=== PATIENT | female | born 1980 | race Caucasian/White ===

== ENCOUNTER 2024-12-20 10:40 | Emergency (ER) | payer OTHER, SELFPAY ==
--- NOTE | ~2024-12-20 | CT_ITS ---
CT brain wo con Ordering provider: Malcolm Henson MD History: 44 years Female with . left sided headache with blurred vision . Comparison: June 16, 2016 Technique: CT of the head without contrast. Radiation reduction technique utilized.The dose-length pr oduct was 605.33 mGy-cm. FINDINGS: BRAIN PARENCHYMA AND CSF SPACES: No midline shift, mass effect or hemorrhage. The brain parenchyma a nd CSF spaces are otherwise normal. VISUALIZED PARANASAL SINUSES: Right maxillary sinus disease. Otherwise, Well aerated. MASTOIDS: Well aerated. BONES: The bones appear intact. SOFT TISSUES: Visualized nasopharynx is normal. Superficial soft tissues are normal. IMPRESSION: No acute intracranial findings. Reviewed, dictated and finalized at location A.
--- OUTSIDE RECORDS SUMMARY | 2024-12-20 10:43 | XMS_ITS | Patient Health Record ---
Author Organization 1 OF Aleks isidro [facility] Address [address] [facility] [address] [place] [address] Care Team Providers Care Building Economist Name Role Phone Rubén FLORES, Dr. Blackman Primary Care Provider U Juliette Sheikh Unavailable [phone] Reason For Referral No Information Problems Problem Type SNOMED Code ICD Code Onset Dates Problem Status W/U Status Risk Notes Problem [id number] Type 2 diabetes mellitus without complication, without long-term current use of insulin (E11.9) Active confirmed Problem [id number] Skin ulcer of toe of left foot with fat layer exposed (L97.522) Active confirmed Plan Of Treatment No Information Insurance Providers Payer Name Payer Address Payer Phone Subscriber Number Group Number Insured Name Patient Relationship to Insured Coverage Start Date Coverage End Date [facility] [address] [place], [place] [id number] Alisia Huber Self - patient is the insured
--- OUTSIDE RECORDS SUMMARY | 2024-12-20 10:43 | XMS_ITS | Clinical Summary ---
Author Organization [facility] Address [address] [place] [address] Care Team Providers Care Game Advisor Name Role Phone Hiral Montana MD Primary Care Pro vider Allergies Active Allergy Reactions Criticality Noted Date Comments Azithromycin Rash Medium 09/14/2013 Coconut Unknown 05/16/2021 Iodinated Contrast Media Hives Medium 05/16/2022 Iodine Unknown 09/26/2012 Medications iron aspgly,ps-C-B12 -FA-Ca-suc 150-60-25-1 cj-vu-kec-mg capsule Take 1 capsule by mouth daily Iron supplement Active atorvastatin (LIPITOR) 20 mg tabletIndicatio ns:Type 2 diabetes mellitus without complication, without long-term current use of insulin (HCC),Hyperlipi demia associated with type 2 diabetes mellitus (HCC) Take 1 tablet (20 mg total) by mouth daily 90 tablet 3 2 Active metFORMIN XR (GLUCOPHAGE XR) 500 mg 24 hr tabletIndicatio ns:Type 2 diabetes mellitus without complication, without long-term current use of insulin (HCC) TAKE 2 TABLETS (1,000 MG TOTAL) BY MOUTH 2 (TWO) TIMES A DAY BEFORE BREAKFAST AND DINNER 360 tablet 1 3 Active tirzepatide (Mounjaro) 10 mg/0.5 mL pen injectorIndicat ions:Type 2 diabetes mellitus with hyperglycemia, without long-term current use of insulin (HCC) Inject 10 mg under the skin every 7 days 2 mL 3 Active tirzepatide (Mounjaro) 12.5 mg/0.5 mL pen injectorIndicat ions:Type 2 diabetes mellitus with hyperglycemia, without long-term current use of insulin (HCC) Inject 12.5 mg under the skin every 7 days 2 mL 4 Active tirzepatide (Mounjaro) 15 mg/0.5 mL pen injectorIndicat ions:Type 2 diabetes mellitus with hyperglycemia, without long-term current use of insulin (HCC) Inject 15 mg under the skin every 7 days 2 mL 4 Active empagliflozin (Jardiance) 25 mg tabletIndicatio ns:Type 2 diabetes mellitus with hyperglycemia, without long-term current use of insulin ([facility]) TAKE 1 TABLET BY MOUTH EVERY DAY 90 tablet 4 Active Active Problems Problem Noted Date Diagnosed Date Cellulitis of great toe of left foot 04/23/2023 Assessment & Plan (04/30/2023 10:19 AM CDT): Reviewed hospital discharge Upcoming appointment with wound clinic Class 2 severe obesity due t o excess calories with serious comorbidity and body mass index (BMI) of 38.0 to 38.9 in adult 04/23/2023 Diabetic ulcer of toe of lef t foot associated with type 2 diabetes mellitus, with fat layer exposed 04/20/2023 Pain of toe of right foot 04/17/2023 Assessment & Plan (04/17/2023 11:24 AM CDT): VSS, no acute distress no systemic signs of toxicity Left great toe with lateral aspect erythema, generalized edema, decreased range of motion, underlying plantar surface acute on chronic worsening of callus/ulcer Diabetic We will cover with broad-spectrum antibiotic with oral doxycycline 100 mg twice a day for 10 days and oral ciprofloxacin 500 mg twice a day for 10 days. Ddx including gout, pseudogout, rheumatoid arthritis. Patient will need further workup for this. 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 Mixed hyperlipidemia 08/13/2012 Diabetes mellitus 08/05/2012 Assessment & Plan (09/13/2023 3:10 PM KILN BURNER HELPER): Lab Results Component Value Date HGBA1C 7.8 09/13/2023 improved, but above goal Switch trulicity to mounjaro Continue metformin 1000mg twice a day and jardiance 25mg daily Assessment & Plan (04/30/2023 10:22 AM CDT): Lab Results Component Value Date HGBA1C 8.5 (H) 04/21/2023 Improved, but above goal Increase jardiance to 25mg, continue 4.5mg trulicity and 1000mg metformin twice a day Assessment & Plan (11/19/2022 8:01 AM KILN BURNER HELPER): Lab Results Component Value Date HGBA1C 10.3 11/19/2022 Uncontrolled Continue metformin 1000mg twice a day & 4.5mg trulicity Add jardiance Assessment & Plan (07/10/2022 2:09 PM CDT): Increase trulicity to 4.5mg Continue metformin Resolved Problems Problem Noted Date Diagnosed Date Resolved Date Systemic inflammatory response syndrome 04/23/2023 04/30/2023 Hyponatremia 04/23/2023 04/30/2023 Leukocytosis 04/23/2023 04/30/2023 Sepsis without acute organ dysfunction 04/21/2023 04/30/2023 Acute cystitis without hematuria 04/21/2023 04/30/2023 Type 2 diabetes mellitus with hyperglycemia 05/16/2022 06/28/2022 Assessment & Plan (05/20/2022 12:16 PM CDT): Lab Results Component Value Date HGBA1C 9.1 (H) 05/19/2022 Uncontrolled Increase trulicity to 3mg Continue metformin Hypertension, benign 04/03/2018 022 Type 2 diabetes mellitus wit hout complication, without long-term current use of insulin 06/28/2022 Assessment & Plan (07/13/2021 10:35 AM CDT): Lab Results Component Value Date HGBA1C 8.7 06/13/2021 Improved from 11.5>8.7>7.4! Continue metformin XR Continue trulicity 1.5mg weekly Assessment & Plan (06/13/2021 10:02 AM CDT): Lab Results Component Value Date HGBA1C 8.7 06/13/2021 Improved from 11.5! Switch metformin to XR as having diarrhea with regular Increase trulicity to 1.5mg weekly for persistently elevated fasting blood sugar Assessment & Plan (05/16/2021 9:46 AM CDT): Uncontrolled Restart metformin Try trulicity, recommend start a few days after metformin Immunizations Immunization Administration Dates Next Due DTP 04/23/1985, 2,1980,07/13,1980 Influenza, Quadrivalent, Hedy l Culture-based MDCK, Preservative Free, Antibiotic Free, Intramuscular 07/06/2022 Influenza, Quadrivalent, Spl it, Preservative Free, Intramuscular 09/13/2023,05/26/2021 Influenza, Trivalent, Cell Culture-based MDCK, Preservative Free, Antibiotic Free, Intramuscular 07/06/2022 Influenza, Unspecified 05/18/2021 MMR 03/11/1990,09/06/1981 OPV 04/23/1985, 2,1980,07/13,1980 OPV, Unspecified 04/23/1985, 2,1980,07/13,1980 Pneumococcal Polysaccharide PPV23 05/16/2022 Tdap 05/16/2022 Surgical History Surgery Date Site/Laterality Comments TUBAL LIGATION Medical History Medical History Date Comments Anemia Diabetes mellitus (HCC) Abnormal Pap smear of cervix History of transfusion Ectopic Family History Medical History Relation Name Comments Atrial fibrillation Father Alvarado Cardiomyopathy Father Alvarado Hypertension Father Alvarado Stroke Father Alvarado Breast cancer Maternal Grandmother Allergy (severe) Mother Ruby Anemia Mother Ruby Diabetes Mother Ruby Myasthenia gravis Mother Ruby Neuropathy Mother Ruby Diabetes Other Heart disease Other Hypertension Other Stroke Other Ovarian cancer Sister Uterine cancer Neg Hx Relation Name Status Comments Father Alvarado Maternal Grandmother Mother Ruby Alive Other Sister Social History Tobacco Use Types Packs/Day Years Used Date Smoking Tobacco: Never Smokeless Tobacco: Never Tobacco Cessation:Counseling Given: Not Answered Social Connection and Isolat ion Panel [NHANES] Answer Date Recorded In a typical week, how many times do you talk on the phone with family, friends, or neighbors? More than three times a week 04/22/2023 How often do you get togethe r with friends or relatives? More than three times a week 04/22/2023 How often do you attend chur ch or yarsani services? More than 4 times per year 04/22/2023 Do you belong to any clubs o r organizations such as sikh groups, unions, fraternal or athletic groups, or school groups? Yes 04/22/2023 How often do you attend meet ings of the clubs or organizations you belong to? More than 4 times per year 04/22/2023 Are you , , di vorced, , never , or living with a partner? 04/22/2023 AUDIT-C Answer Date Recorded Frequency of Alcohol Consumption Not on file 05/16/2022 Q2: How many drinks containi ng alcohol do you have on a typical day when you are drinking? Patient does not drink Frequency of Binge Drinking Not on file 04/18 Overall Financial Resource Strain (CARDIA) Answe r Date Recorded How hard is it for you to pa y for the very basics like food, housing, medical care, and heating? Not hard at all 04/22/2023 PHQ-2 Answer Date Recorded PHQ-2 Total Score (If total score is 3 or more points, staff should administer the PHQ-9) 0 04/30/2023 PRAPARE - Transportation Answer Date Re corded In the past 12 months, has l ack of transportation kept you from medical appointments or from getting medications? No 0803/2023 In the past 12 months, has l ack of transportation kept you from meetings, work, or from getting things needed for daily living? No 04/22/2023 Personal Safety Answer Date Recorded Getting School Help Needed Not on file 04/29 Comments No Sex and Gender Information Value Date Recorded Sex Assigned at Not on file Legal Sex Female 6:21 PM KILN BURNER HELPER Gender Identity Not on file Sexual Orientation Not on file Obstetrics History Para Term AB IAB SAB Ectopic Multiple Livin g Live Births 6 1 1 5 4 1 1 1 Date Outcome GA Total Labor Labor/2nd/3rd Weight Sex Type Anes PTL Raina A1 A5 Name Clin Ectopic SAB SAB SAB SAB 2009 Term Vag-S pont Living Last Filed Vital Signs Vital Sign Reading Time Taken Comments Blood Pressure 130/88 09/13/2023 2:55 PM KILN BURNER HELPER Pulse 72 09/13/2023 2:55 PM KILN BURNER HELPER Temperature 36.3 C (97.3 F) 09/13/2023 2:55 PM KILN BURNER HELPER Respiratory Rate 18 09/13/2023 2:55 PM KILN BURNER HELPER Oxygen Saturation 99% 09/13/2023 2:55 PM KILN BURNER HELPER Inhaled Oxygen Concentration - - Weight 117.7 kg (259 lb 6.4 oz) 09/13/2023 2:55 PM KILN BURNER HELPER Height 175.3 cm (5' 9 ) 09/13/2023 2:55 PM KILN BURNER HELPER Body Mass Index 38.31 09/13/2023 2:55 PM KILN BURNER HELPER Plan of Treatment Health Maintenance Due Date Last Done Comments Hepatitis C Screening 1980 Foot Exam 1980 Varicella Vaccines (1 of 2 - 13+ 2-dose series) 02/25/1993 Hepatitis B Screening 02/25/1998 Cervical Cancer Screening 05/16/2023 05/16/2022 Pneumococcal vaccine <65 (2 of 2 - PCV) 05/16/2023 05/16/2022 Regular Well Visit/Exam 18-64 05/16/2023 05/16/2022 Albumin Creatinine Ratio, Urine 05/19/2023 05/19/2022 Lipid Panel 05/19/2023 05/19/2022, 08/3 09/2020, 09/14/2013 Breast Cancer Screening-Mammogram 09/13/2023 09/13/2022 Hemoglobin A1C 03/14/2024 09/13/2023, 08/0 02/2023, 11/19/2022, Additional history exists eGFR 04/23/2024 04/23/2023, 08/0 02/2023, 04/20/2023, Additional history exists Depression Screening 04/30/2024 04/30/2023, 05/16/2022, 06/13/2021 Covid-19 Vaccine ( season) 2024 07/06/2022, 11/27/2020 Dilated Eye Exam 09/13/2025 09/13/2023 DTaP/Tdap/Td Vaccine (7 - Td or Tdap) 05/16/2032 05/16/2022, 04/23/1985, 11/03/1981, Additional history exists Influenza Vaccine Completed 07/04/2024, , 07/06/2022, Additional history exists HPV Vaccines Aged Out No longer eligi ble based on patient's age to complete this topic Procedures Procedure Name Priority Date/Time Associated Diagnosis Comments POCT HEMOGLOBIN A1C Routine 09/13/2023 3:00 PM KILN BURNER HELPER Type 2 diabetes mellitus with hyperglycemia, without long-term current use of insulin (HCC) RETINAVUE SCANNER - OU - BOTH EYES Routine 09/13/2023 Type 2 diabetes mellitus with hyperglycemia, without long-term current use of insulin (HCC) EGFR Routine 04/23/2023 5:30 AM CDT DIAGNOSTIC MAMMOGRAM BILATERAL W JORGE Schedule Routine, Read Routine (OP Routine) 09/13/2022 1:45 PM KILN BURNER HELPER Persistent nodularity of breast ALBUMIN CREATININE RATIO, URINE Routine 05/19/2022 8:08 AM CDT Type 2 diabetes mellitus with hyperglycemia, without long-term current use of insulin (HCC) LIPID PANEL Routine 05/19/2022 8:07 AM CDT Type 2 diabetes mellitus with hyperglycemia, without long-term current use of insulin (HCC) PAP AND HIGH RISK HPV, REFLEX TO GENOTYPING Routine 05/16/2022 9:58 AM CDT Encounter for well woman exam with routine gynecological exam from Last 3 Months or Most Recently Relevant to Health Maintenance Results * POCT hemoglobin A1c (09/13/2023 3:00 PM KILN BURNER HELPER) Hemoglobin A1C, POC 7.8 % Blood 09/13/2023 3:00 PM KILN BURNER HELPER Hiral Montana MD POINT OF CARE WOLFGANG T ORDERABLES Final Result * RetinaVue Scanner - OU - Both Eyes (09/13/2023) Anatomical Region Laterality Modality Head Fundus Photograp hy Hiral Montana MD OPHTH PHOTOGRAPHY Final Result * eGFR (04/23/2023 5:30 AM CDT) eGFR 114 mL/min/1. 73 m2 [facility] Comment: Interpretive Data Reference Interval Normal >/= 90 mL/min/1.73m2 Mildly decreased* 60 - 89 mL/min/1.73m2 Mildly to moderately decreased 45 - 59 mL/min/1.73m2 Moderately to severely decreased 30 - 44 mL/min/1.73m2 Severely decreased 15 - 29 mL/min/1.73m2 Kidney Failure < 15 mL/min/1.73m2 *Relative to young adult level Estimated glomerular filtration rate is determined by the 2020 CKD-EPI equation recommended by the National Kidney Foundation (A Unifying Approach to GFR Estimation: Recommendations of the NKF-ASK Task Force on Reassessing the Inclusion of Race in Diagnosing Kidney Disease, JASN 2020). The CKD-EPI equation should not be used for patients with unstable renal function and has not been validated in children and those over 70. Current interpretive data was last reviewed 2021. Blood 04/23/2023 5:30 AM CDT 04/23/2023 6:20 AM CDT Amelia Pace DO LAB BLOOD ORDERABLES Final Resul t [facility] [address] [facility] Department [place] [address] * Diagnostic Mammogram Bilateral W Jorge (09/13/2022 1:45 PM KILN BURNER HELPER) Anatomical Region Laterality Modality Breast Bilateral Mammography 09/13/2022 2:04 PM KILN BURNER HELPER Impressions 09/13/2022 2:06 PM KILN BURNER HELPER 1. No suspicious finding by mammogram or ultrasound at the left breast palpable area of concern at 2:30-3 o'clock, 8-9 cm from the nipple. Clinical follow-up is recommended. Any further evaluation regarding this palpable area should be based on clinical grounds. 2. No mammographic or sonographic evidence of malignancy. Screening mammogram in 1 year is recommended. BIRADS 1 - Negative COMMENT: I discussed these findings and impression with the patient at the time of the examination. THIS IS AN ELECTRONICALLY VERIFIED FINAL REPORT 09/13/2022 2:06 PM - Electronically signed by Juan Campos M.D. MD: Report ID: [id number] Reading Location: [facility] 09/13/2022 2:06 PM KILN BURNER HELPER EXAM DESCRIPTION: US BREAST LEFT LIMITED; DIAGNOSTIC MAMMOGRAM BILATERAL W JORGE REASON FOR STUDY: 42-year-old female presents for evaluation of a palpable left breast lump and right screening mammogram. COMPARISON: None available, baseline mammogram TECHNIQUE: CC and MLO views of the bilateral breasts were obtained with digital technique using breast tomosynthesis with C view. Multiple grayscale ultrasound images of the left breast were obtained. FINDINGS: DENSITY: There are scattered areas of fibroglandular density. MAMMOGRAM FINDINGS: A radiopaque marker has been placed on the lateral left breast, denoting the palpable area of concern. There is no abnormality underlying the radiopaque marker. No suspicious masses, suspicious calcifications, or other suspicious findings are seen in either breast. ULTRASOUND FINDINGS: Targeted ultrasound of the left breast palpable area of concern at 2:30-3 o'clock, 8-9 cm from the nipple demonstrates only normal tissue with no suspicious solid or cystic mass. us Elida Tony MD IMG MAMMO PROCEDURES Final Result * Albumin Creatinine Ratio, Urine (05/19/2022 8:08 AM CDT) Creatinine ur 143.6 Not Estab. mg/dL [facility] - 01 Microalbumin, ur 33.1 Not Estab. ug/mL [facility] - 01 Microalbumin/cre at ratio 23 0 - 29 mg/g creat [facility] - 01 Comment: Normal: 0 - 29 Moderately increased: 30 - 300 Severely increased: >300 Urine 05/19/2022 8:08 AM CDT 05/19/2022 Narrative [facility] - 05/20/2022 8:08 AM CDT Performed at: [address] [place] [id number] Endband Cutter Hand: Marito Curiel PhD, Phone: [phone] Hiral Montana MD LAB URINE ORDERAB LES Final Result Performing Organization Address [facility] de Phone Number [facility] - * (ABNORMAL) Lipid panel (05/19/2022 8:07 AM CDT) Cholesterol 150 100 - 199 mg/dL [facility] - 01 Triglycerides 106 0 - 149 mg/dL [facility] - 01 HDL Cholesterol 36(L) >39 mg/dL [facility] - 01 VLDL 20 5 - 40 mg/dL [facility] - 01 LDL, calculated 94 0 - 99 mg/dL [facility] - 01 Blood 05/19/2022 8:07 AM CDT 05/19/2022 Narrative [facility] - 05/20/2022 8:08 AM CDT Performed at: [address] [id number] Endband Cutter Hand: Marito Curiel PhD, Phone: [phone] Hiral Montana MD LAB BLOOD ORDERAB LES Final Result Performing Organization Address [facility] Co de Phone Number [facility] - * (ABNORMAL) Pap and High Risk HPV, reflex to Genotyping (05/16/2022 9:58 AM CDT) Thin prep (Pap test) 05/16/2022 9:58 AM CDT 05/17/2022 9:58 AM CDT Narrative PATHOLOGY [facility] - 05/23/2022 4:08 PM CDT [facility] Department of Pathology [address] [place] [address] Final Report with Addendum Note to Patients: This report may contain a detailed description of human tissue sent by a health care provider to the laboratory for pathologic evaluation. The content of this report is essential for diagnosis and may provide important critical findings. This information may be unfamiliar to patients to review without a medical professional present. It is advised that the patient review this report in the presence of a health care provider who can answer questions and explain the details. Patient Name: ALISIA COREY Address: [address] [place] [address] Gender: F : 1980 (Age: 42) Service: Laboratory Location: [facility] #: [id number] Patient Type: [employer] SPECIMEN Taken: 05/16/2022 Received: 05/17/2022 Accessioned:: 05/18/2022 Reported: 05/23/2022 Physician(s): Hiral Montana M.D. [facility] Diagnosis: Source of Specimen: SCREENING THIN PREP IMAGED PAP w/ HPV Specimen Adequacy: - Satisfactory for evaluation; endocervical/transformation zone component present General Category: - Epithelial cell abnormality Interpretation/Results: - Low grade squamous intraepithelial lesion (LSIL) encompassing HPV/mild dysplasia/KADEEM I AMARILYS Kim(ASCP)Jose Alberto Gomez M.D. Report Electronically Reviewed and Signed Out By Jose Alberto Gomez M.D. 05/23/2022 16:08:34Addenda: HPV Test Interpretation POSITIVE for one or more of types 16, 18, 31, 33, 35, 39, 45, 51, 52, 56, 58, 59, 66 and 68. These high/intermediate risk HPV types are associated with dysplasia and some cervical cancers. Test performed utilizing Gen-Probe Aptima assay. AMARILYS Kim(ASCP)Report Electronically Reviewed and Signed Out By AMARILYS Kim(ASCP) 05/22/2022 11:00:05 Specimen(s) Received: A: SCREENING THIN PREP IMAGED PAP w/ HPV Clinical History: The Pap test is a screening test used to aid in the detection of cervical cancer and its precursors. It should not be the sole means by which malignant and premalignant lesions are diagnosed. Both false negative and false positive results may occur. It also has poor sensitivity for the detection of endometrial lesions and should not be used to evaluate suspected endometrial abnormalities. For these reasons it is most important to obtain Pap tests at regular intervals. The performance characteristics of some immunohistochemical stains, fluorescence in-situ hybridization tests and immunophenotyping by flow cytometry cited in this report (if any) were determined by the Surgical Pathology Department at [facility] as part of an ongoing software quality tester program and in compliance with federally mandated regulations drawn from the Clinical Laboratory Improvement Act of 1988 (CLIA '88). Some of these tests rely on the use of analyte specific reagents and are subject to specific labeling requirements by the US Food and Drug Administration. Such diagnostic tests may only be performed in a facility that is certified by the Department of Health and Human Services as a high complexity laboratory under CLIA '88. The FDA has determined that such clearance or approval is not necessary. This test is used for clinical purposes. It should not be regarded as investigational or for research. Nevertheless, federal rules concerning the medical use of analyte specific reagents require that the following disclaimer be attached to the report: This test was developed and its performance characteristics determined by the Surgical Pathology Department [facility]. It has not been cleared or approved by the U. S. Food and Drug Administration. Hiral Montana MD LAB CYTOLOGY TRAE NARAYAN Final Result PATHOLOGY [facility] from Last 3 Months or Most Recently Relevant to Health Maintenance Insurance [facility] CHOICE PLUS [facility] CHOICE PLUS [facility] CHOICE PLUS Advance Directives For more information, please contact: [phone] * Full Code (Latest Code Status on File) Date Activated Date Inactivated Comments 04/21/2023 1:35 AM 04/23/2023 9:04 PM * Full Code Date Activated Date Inactivated Comments 04/20/2023 8:26 PM 04/21/2023 1:35 AM Care Teams Game Advisor Relationship Specialty Start Date End Date Hiral Montana MD PCP - General Family Medicine 05/16/21
--- OUTSIDE RECORDS SUMMARY | 2024-12-20 10:43 | XMS_ITS | Referral Summary ---
Author Organization [facility] Address [address] [place] [address] Care Team Providers Care Freight Brakeman Name Role Phone Hiral Montana MD Primary Care Pro vider Allergies Active Allergy Reactions Criticality Noted Date Comments Azithromycin Rash Medium 09/14/2013 Coconut Unknown 05/16/2021 Iodinated Contrast Media Hives Medium 05/16/2022 Iodine Unknown 09/26/2012 Medications iron aspgly,ps-C-B12 -FA-Ca-suc 150-60-25-1 bt-cv-nak-mg capsule Take 1 capsule by mouth daily [...] hyperglycemia, without long-term current use of insulin ([facility]) TAKE 1 TABLET BY MOUTH EVERY DAY [...] 08/05/2012 Assessment & Plan (09/13/2023 3:10 PM MOTORCYCLE MECHANIC): Lab Results Component Value Date HGBA1C 7.8 [...] day Assessment & Plan (11/19/2022 8:01 AM MOTORCYCLE MECHANIC): Lab Results Component Value Date HGBA1C 10.3 [...] 2,1980,07/13,1980 Pneumococcal Polysaccharide PPV23 05/16/2022 Tdap 05/16/2022 Social History Tobacco Use Types Packs/Day Years [...] often do you attend chur ch or religion services? More than 4 times per year 04/22/2023 Do you belong to any clubs o r organizations such as restoration groups, unions, fraternal or athletic groups, or [...] medical appointments or from getting medications? No 03/2023 In the past 12 months, has l ack of transportation kept you from meetings, work, or from getting things needed for daily living? No 04/22/2023 Personal Safety Answer Date Recorded Getting School Help Needed Not on file 04/29 Comments No Sex and Gender Information Value Date Recorded Sex Assigned at Not on file Legal Sex Female 6:21 PM MOTORCYCLE MECHANIC Gender Identity Not on file Sexual Orientation Not on file Last Filed Vital Signs Vital Sign Reading Time Taken Comments Blood Pressure 130/88 09/13/2023 2:55 PM MOTORCYCLE MECHANIC Pulse 72 09/13/2023 2:55 PM MOTORCYCLE MECHANIC Temperature 36.3 C (97.3 F) 09/13/2023 2:55 PM MOTORCYCLE MECHANIC Respiratory Rate 18 09/13/2023 2:55 PM MOTORCYCLE MECHANIC Oxygen Saturation 99% 09/13/2023 2:55 PM MOTORCYCLE MECHANIC Inhaled Oxygen Concentration - - Weight 117.7 kg (259 lb 6.4 oz) 09/13/2023 2:55 PM MOTORCYCLE MECHANIC Height 175.3 cm (5' 9 ) 09/13/2023 2:55 PM MOTORCYCLE MECHANIC Body Mass Index 38.31 09/13/2023 2:55 PM MOTORCYCLE MECHANIC Plan of Treatment Not on file Procedures Procedure Name Priority Date/Time Associated Diagnosis Comments POCT HEMOGLOBIN A1C Routine 09/13/2023 3:00 PM MOTORCYCLE MECHANIC Type 2 diabetes mellitus with hyperglycemia, without long-term current use of insulin (HCC) RETINAVUE SCANNER - OU - BOTH EYES Routine 09/13/2023 Type 2 diabetes mellitus with hyperglycemia, without long-term current use of insulin (HCC) EGFR Routine 04/23/2023 5:30 AM CDT DIAGNOSTIC MAMMOGRAM BILATERAL W JORGE Schedule Routine, Read Routine (OP Routine) 09/13/2022 1:45 PM MOTORCYCLE MECHANIC Persistent nodularity of breast ALBUMIN CREATININE RATIO, [...] * POCT hemoglobin A1c (09/13/2023 3:00 PM MOTORCYCLE MECHANIC) Hemoglobin A1C, POC 7.8 % Blood 09/13/2023 3:00 PM MOTORCYCLE MECHANIC Hiral Montana MD POINT OF CARE OWLFGANG T ORDERABLES Final Result * RetinaVue Scanner [...] BLOOD ORDERABLES Final Resul t [place] [facility] [address] [facility] Department [place] [address] * Diagnostic Mammogram Bilateral W Jorge (09/13/2022 1:45 PM MOTORCYCLE MECHANIC) Anatomical Region Laterality Modality Breast Bilateral Mammography 09/13/2022 2:04 PM MOTORCYCLE MECHANIC Impressions 09/13/2022 2:06 PM MOTORCYCLE MECHANIC 1. No suspicious finding by mammogram or [...] by Juan Campos M.D. MD: Report ID: [id number] Reading Location: [facility] 09/13/2022 2:06 PM MOTORCYCLE MECHANIC EXAM DESCRIPTION: US BREAST LEFT LIMITED; DIAGNOSTIC [...] - 05/20/2022 8:08 AM CDT Performed at: [address] [place] [id number] Corporate Librarian: Marito Curiel PhD, Phone: [phone] Hiral Montana MD LAB URINE ORDERAB LES Final Result Performing Organization Address City/[facility]/ZIP Co de Phone Number [facility] - * (ABNORMAL) Lipid panel (05/19/2022 8:07 AM CDT) Pathologist [facility] Cholesterol 150 100 - 199 mg/dL [facility] - 01 Triglycerides 106 0 - 149 mg/dL [facility] - 01 HDL Cholesterol 36(L) >39 mg/dL [facility] - 01 VLDL 20 5 - 40 mg/dL [facility] - 01 LDL, calculated 94 0 - 99 mg/dL [facility] - 01 Blood 05/19/2022 8:07 AM CDT 05/19/2022 Narrative [facility] - 05/20/2022 8:08 AM CDT Performed at: [address] [place] [address] [id number] Corporate Librarian: Marito Curiel PhD, Phone: [phone] Hiral Montana MD LAB BLOOD ORDERAB LES Final Result Performing Organization Address City/[facility]/ZIP Co de Phone Number [facility] - 01 * (ABNORMAL) Pap and High Risk HPV, reflex to Genotyping (05/16/2022 9:58 AM CDT) Thin prep (Pap test) 05/16/2022 9:58 AM CDT 05/17/2022 9:58 AM CDT Narrative PATHOLOGY [facility] - 05/23/2022 4:08 PM CDT [facility] Department of Pathology [address] [place] [id number] Final Report with Addendum Note to Patients: [...] the details. Patient Name: ALISIA COREY Address: [address] [place] [address] Gender: F : 1980 (Age: 42) Service: Laboratory Location: [facility] #: [id number] Patient Type: [facility] SPECIMEN Taken: 05/16/2022 Received: 05/17/2022 Accessioned:: 05/18/2022 Reported: 05/23/2022 Physician(s): Hiarl Montana M.D. [facility] Diagnosis: Source of Specimen: SCREENING [...] Kim(ASCP)Report Electronically Reviewed and Signed Out By ANUSHA KimASCP) 05/22/2022 11:00:05 Specimen(s) Received: A: SCREENING THIN [...] determined by the Surgical Pathology Department at [facility] as part of an ongoing quality assurance qa lab analyst program and in compliance with federally mandated [...] characteristics determined by the Surgical Pathology Department [facility]. It has not been cleared or approved by the U. S. Food and Drug Administration. Hiarl Montana MD LAB CYTOLOGY TRAE NARAYAN Final Result PATHOLOGY [facility] from Last 3 Months or Most Recently Relevant to Health Maintenance [place] [place] [address] CHOICE PLUS [facility] Address: [address] [place] [address] [facility] Address: [address] [place] [address] [facility] Address: [address] [place] [address] Advance Directives For more information, please contact: [phone] * Full Code (Latest Code Status on File) Date Activated Date Inactivated Comments 04/21/2023 1:35 AM 04/23/2023 9:04 PM * Full Code Date Activated Date Inactivated Comments 04/20/2023 8:26 PM 04/21/2023 1:35 AM Care Teams Freight Brakeman Relationship Specialty Start Date End Date Hiral Montana MD PCP - General Family Medicine 05/16/21
--- OUTSIDE RECORDS SUMMARY | 2024-12-20 10:43 | XMS_ITS | Clinical Summary ---
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 MACHINE BACK TENDER Gender Identity Not on file Sexual Orientation Not on file Plan of Treatment Health Maintenance Due Date Last Done Comments Hepatitis C Virus (HCV) Screening 1980 TdaP Immunization 1980 Hepatitis B Immunization (1 of 3 - 19+ 3-dose series) 02/25/1999 Pap Smear 02/25/2001 Cervical Cancer Screening (CCS) 02/25/2010 HPV/Cotest 02/25/2010 Discussion re Starting/Frequency of Mammograms 2020 Influenza Immunization (#1) 2024 SARS-COV-2 Immunization ( - season) 2024 Respiratory Syncytial Virus (RSV) Immunization (Adult) (1 - 1-dose 75+ series) 02/25/2055 DTaP/Tdap/Td Immunization Discontinued 1984, 11/03/1981, 1980, Additional history exists Meningococcal Immunization (ACWY) Aged Out No longer eligible based on patient's age to complete this topic Pneumococcal Immunization Combined Aged Out No longer eligible based on patient's age to complete this topic Rotavirus Immunization Aged Out No lo nger eligible based on patient's age to complete this topic
--- OUTSIDE RECORDS SUMMARY | 2024-12-20 10:43 | XMS_ITS | Continuity of Care Document ---
Author Organization [facility] Address [address] [place] [address] [place] [phone] Phone Care Team Providers Care Swedish Masseuse Name Role Phone Fabian Trejo Unavailable Unavailable Procedures Procedure Date THERAPEUTIC EXERCISES NEUROMUSCULAR RE-ED MANUAL THERAPY FUNC ACTIVITY THERAPEUTIC EXERCISES NEUROMUSCULAR RE-ED MANUAL THERAPY FUNC ACTIVITY PT RE-EVALUATION THERAPEUTIC EXERCISES NEUROMUSCULAR RE-ED MANUAL THERAPY FUNC ACTIVITY THERAPEUTIC EXERCISES NEUROMUSCULAR RE-ED MANUAL THERAPY FUNC ACTIVITY ELECTRIC STIMULATION THERAPEUTIC EXERCISES NEUROMUSCULAR RE-ED MANUAL THERAPY FUNC ACTIVITY ULTRASOUND THERAPY HOT/COLD PACK ELECTRIC STIMULATION UNA THERAPEUTIC EXERCISES NEUROMUSCULAR RE-ED FUNC ACTIVITY THERAPEUTIC EXERCISES NEUROMUSCULAR RE-ED MANUAL THERAPY FUNC ACTIVITY ELECTRIC STIMULATION UNA THERAPEUTIC EXERCISES NEUROMUSCULAR RE-ED FUNC ACTIVITY ELECTRIC STIMULATION UNA THERAPEUTIC EXERCISES NEUROMUSCULAR RE-ED MANUAL THERAPY FUNC ACTIVITY ELECTRIC STIMULATION UNA THERAPEUTIC EXERCISES NEUROMUSCULAR RE-ED MANUAL THERAPY FUNC ACTIVITY ELECTRIC STIMULATION UNATT HOT/COLD PACK THERAPEUTIC EXERCISES NEUROMUSCULAR RE-ED MANUAL THERAPY FUNC ACTIVITY HOT/COLD PACK ELECTRIC STIMULATION UNA THERAPEUTIC EXERCISES NEUROMUSCULAR RE-ED MANUAL THERAPY FUNC ACTIVITY ULTRASOUND THERAPY HOT/COLD PACK ELECTRIC STIMULATION UNA THERAPEUTIC EXERCISES NEUROMUSCULAR RE-ED MANUAL THERAPY FUNC ACTIVITY ULTRASOUND THERAPY HOT/COLD PACK ELECTRIC STIMULATION UNA THERAPEUTIC EXERCISES NEUROMUSCULAR RE-ED MANUAL THERAPY FUNC ACTIVITY ULTRASOUND THERAPY HOT/COLD PACK ELECTRIC STIMULATION UNA THERAPEUTIC EXERCISES NEUROMUSCULAR RE-ED MANUAL THERAPY FUNC ACTIVITY ULTRASOUND THERAPY /COLD PACK ELECTRIC STIMULATION UNA THERAPEUTIC EXERCISES NEUROMUSCULAR RE-ED MANUAL THERAPY FUNC ACTIVITY ULTRASOUND THERAPY HOT/COLD PACK ELECTRIC STIMULATION UNA PT EVALUATION THERAPEUTIC EXERCISES ULTRASOUND THERAPY HOT/COLD PACK ELECTRIC STIMULATION UNATT Advance Directives Directive Yes / No Effective Date File Name No Information Encounters Encounter Description Practice Location Reason(s) For Visit Diagnoses Date Provider Providers Copied on Encounter [facility], [address], [place], [place], [id number], tel:[phone] [place] No Information Apr-1 3-201 5 Muehl Fabian. [address] [place] [address], [facility] [address], [place], [facility], . tel: [phone] Referring Provider: [place], [address]. tel:[phone] [facility], [place], [place], [id number], tel:[phone] [place] No Information Apr-0 1-201 5 Muehl Fabian. [address] [place] [address], [facility], [place], [facility], . tel: [phone] Referring Provider: [place], [address]. tel:[phone] [facility], [place], [place], [id number], tel:[phone] [place] No Information Mar-3 0-201 5 Muehl Fabian. [address] [place] [address], [facility] [address], [place], [facility], . tel: [phone] Referring Provider: [place], [address]. tel:[phone] [facility] [address], [place], [place], [id number], tel:[phone] [place] No Information Mar-2 7-201 5 Muehl Fabian. [address] [place] [address], [facility] [address], [place], [facility], . tel: [phone] Referring Provider: [place], [address]. tel:[phone] [facility], [place], [place], [id number], tel:[phone] [place] No Information Mar-2 5-201 5 Muehl Fabian. [address] [place] [address], [address], [place], [facility], . tel: [phone] Referring Provider: [place], [address]. tel:[phone] [place] [address] [facility] [address], [place], [id number], tel:[phone] [place] No Information Mar-2 3-201 5 Muehl Fabian. [address] [place] [address], [address], [place], [facility], [place]. tel: [phone] Referring Provider: [place], [address]. tel:[phone], [id number], [place] tel:[phone] [place] No Information Mar-1 9-201 5 Muehl Fabian. [address] [place] [address], [address], [place], [facility], [place]. tel: [phone] Referring Provider: [place], [address]. tel:[phone] [place] [address], [id number], [place] tel:[phone] [place] No Information Mar-1 6-201 5 Muehl Fabian. [address] [place] [address], [address], [place], [facility], [place]. tel: [phone] Referring Provider: [place], [address]. tel:[phone] [address], [place], [place], [id number], [place] tel:[phone] [place] No Information Mar-1 3-201 5 Muehl Fabian. [address] [place] [address], [address], [place], [facility], . tel: [phone] Referring Provider: [place], [address]. tel:[phone], [id number], tel:[phone] [place] No Information Mar-1 1-201 5 Muehl Fabian. [address] [place] [address], [address], [facility], . tel: [phone] Referring Provider: [place], [address]. tel:[phone], [id number], tel:[phone] [place] No Information Mar-0 6-201 5 Muehl Fabian. [address] [place] [address], [facility] [address], [place], [facility], . tel: [phone] Referring Provider: [place], [address]. tel:[phone], [id number], tel:[phone] [place] No Information Mar-0 4-201 5 Muehl Fabian. [address] [place] [address], [address], [facility], . tel: [phone] Referring Provider: [place], [address]. tel:[phone], [id number], tel:[phone] [place] No Information Mar-0 3-201 5 Muehl Fabian. [address] [place] [address], [address], [facility], . tel: [phone] Referring Provider: [place], [address]. tel:[phone] [address], [id number], [place] tel:[phone] [place] No Information Feb-2 7-201 5 Muehl Fabian. [address] [place] [address], [address] [place] [address], [facility], . tel: [phone] Referring Provider: [place], [address]. tel:[phone] [address], [id number], [place] tel:[phone] [place] No Information Feb-2 5-201 5 David Ladd. [address] [place] [address], [address] [place] [address], [facility], . tel: [phone] Referring Provider: [place], [address]. tel:[phone] [address], [id number], [place] tel:[phone] [place] No Information b-2 3-201 5 Muehl Fabian. [address] [place] [address], [address], [facility], . tel: [phone] Referring Provider: [place], [address]. tel:[phone] [address], [id number], [place] tel:[phone] [place] Pain in joint involving lower leg Feb-2 0-201 5 Muehl Fabian. [address] [place] [address], [address], [place], [facility], . tel: [phone] Referring Provider: [place], [address]. tel:[phone] Family History Family Member Type Diagnosis Age At Onset No Information Payers Payer name Insurance type Covered alliance party ID Authoriza tigraeme(s) [facility] [place] BL [id number] [facility] 2014 Social History Type Description Quantity Date Captured Comments Sex Female Smoking Status No Information Chief Complaint And Reason For Visit No Information Reason For Referral Reason For Referral No Information History Of Present Illness Encounter Date Complaint History Of Prese nt Illness No Information Functional Status Date Functional Assessmen t No Information Instructions Date Instruction Additional Infor mation No Information Assessments Type Assessment Date No Information Patient Care Teams Name Effective Dates (start - stop) Status Members No Information
--- OUTSIDE RECORDS SUMMARY | 2024-12-20 10:43 | XMS_ITS | Clinical Summary ---
Author Organization [facility] Address [address] [place] [address] Care Team Providers Care Size Stamper Name Role Phone Dinorah Aniya Akash CARR Primary Care Provider Allergies Active Allergy Reactions Criticality Noted Date Comments Azithromycin Unknown 09/14/2013 Coconut (Cocos Nucifera) Unknown 08/05/2012 Iodine Unknown 09/26/2012 Medications valACYclovir 1 g tablet Take 1 tablet by mouth 3 (three) times daily. 05/30/2015 Active Accu-Chek Multiclix Lancets [facility] 09/25/2013 Active liraglutide (VICTOZA) 18 MG/3ML injection Inject into the skin daily. 04/03/2018 Active Insulin Syringe-Needle U-100 (BD INSULIN SYRINGE U/F) 31G X 5/16 0.3 ML [facility] 04/03/2018 Active Insulin Pen Needle (B-D ULTRAFINE III SHORT PEN) 31G X 8 MM [facility] 06/14/2015 Active insulin detemir (LEVEMIR FLEXTOUCH) 100 UNIT/ML flextouch PEN 06/13/2015 Activ e lisinopril 10 MG tablet Take 1 tablet by mouth daily. 04/03/2018 Active metFORMIN ER 500 MG 24 hr tablet Take 2 tablets by mouth 2 (two) times daily. 05/03/2014 Active simvastatin 10 MG tablet Take 1 tablet by mouth daily. 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 Right knee pain 10/05/2014 Hyperlipidemia 08/13/2012 Anemia 08/05/2012 Fatigue 08/05/2012 Diabetes mellitus ([facility]) 08/05/2012 Immunizations Name Administration Dates Next Due Dtp 04/23/1985,11/03/1981,1980 ,1980,1980 MMR 03/11/1990,09/06/1981 Opv 04/23/1985,11/03/1981,1980 ,1980,1980 Social History Tobacco Use Types Packs/Day Years Used Date Smoking Tobacco: Never Assessed Comments Unknown Sex and Gender Information Value Date Recorded Sex Assigned at Not on file Legal Sex Female 5:33 PM CDT Gender Identity Not on file Sexual Orientation Not on file Last Filed Vital Signs Vital Sign Reading Time Taken Comments Blood Pressure 148/81 04/03/2018 9:02 AM CDT Pulse 87 04/03/2018 9:02 AM CDT Temperature - - Respiratory Rate - - Oxygen Saturation - - Inhaled Oxygen Concentration - - Weight 127 kg (280 lb) 04/03/2018 9:02 AM CDT Height 177.8 cm (5' 10 ) 04/03/2018 9:02 AM CDT Body Mass Index 40.18 04/03/2018 9:02 AM CDT Plan of Treatment Health Maintenance Due Date Last Done Comments Cervical Cancer Screening Pap Smear (Age 30 to 64) Every 3 Years 1980 Annual Physical 02/25/1983 DTaP, Tdap and Td Vaccines (1 - Tdap) 02/25/1999 04/23/1985, 11/03/1981, 1980, Additional history exists Hepatitis B Vaccines (1 of 3 - 19+ 3-dose series) 02/25/1999 Cervical Cancer Screening Pap with HPV Testing (Age 30 to 64) Every 5 Years 02/25/2010 Cervical Cancer Screening with HPV 02/25/2010 Mammogram Screening 2020 COVID-19 Vaccine ( season) 2024 Hepatitis C Completed 04/26/2018 HPV Vaccines Aged Out No longer eligi ble based on patient's age to complete this topic Meningococcal B Vaccine Aged Out No l onger eligible based on patient's age to complete this topic Meningococcal Vaccine Aged Out No raiza paddy eligible based on patient's age to complete this topic Pneumococcal Vaccine: Pediatrics (0 to 5 Years) and At-Risk Patients (6 to 64 Years) Aged Out No longer eligible based on patient's age to complete this topic RSV Immunizations Under 20 Months Aged Out No longer eligible based on patient's age to complete this topic Procedures Procedure Name Priority Date/Time Associated Diagnosis Comments HEPATITIS C ANTIBODY Routine 04/26/2018 9:11 AM CDT from Last 3 Months or Most Recently Relevant to Health Maintenance Results * HEPATITIS C ANTIBODY (04/26/2018 9:11 AM CDT) HEPATITIS C AB <0.1 0.0 - 0.9 s/co ratio [facility] TO EPIC CONVERSION Comment: Result Comment: Negative: < 0.8 Indeterminate: 0.8 - 0.9 Positive: > 0.9 . The CDC recommends that a positive HCV antibody result be followed up with a HCV Nucleic Acid Amplification test (130490). 04/26/2018 9:11 AM CDT 04/26/2018 9:11 AM CDT Narrative [facility] TO EPIC CONVERSION - 04/30/2018 7:10 PM CDT Result Communication: No patient communication needed at this time us Aniya CARR LABORATORY Final Resul t [facility] TO EPIC CONVERSION from Last 3 Months or Most Recently Relevant to Health Maintenance Care Teams Size Stamper Relationship Specialty Start Date End Date Aniya Copeland APNP [address] [place] [id number] PCP - General NURSE PRACTITIONER 04/26/20
[2024-12-20 11:02] VITALS: BP 156/79; PULSE 83; RESP 16; TEMP 36.4; O2SAT 99
[2024-12-20 11:18] LABS: Glucose Point of Care 251 mg/dl (65-105)
[2024-12-20 11:47] LABS: Basophils Absolute Auto 0.1 K/mm3 (0.0-0.1); Basophils Percent Auto 0.7 % (0.2-1.2); Eosinophils Absolute Auto 0.5 K/mm3 (0-0.3); Eosinophils Percent Auto 5.6 % (0-4.4); Hematocrit 37.6 % (37.0-47.0); Hemoglobin 12.2 g/dL (12.0-15.0); Immature Granulocyte Absolute 0.03 K/mm3 (0.00-0.031); Immature Granulocyte Percent A 0.3 % (0-0.5); Lymphocytes Absolute Auto 2.32 K/mm3 (0.9-3.2); Mean Corpuscular HGB Conc 32.4 g/dl (32-36); Mean Corpuscular Volume 86.2 fl (80-100); Mean Platelet Volume 10.1 fl (7.4-10.4); Monocytes Absolute Auto 0.7 K/mm3 (0.1-0.6); Monocytes Percent Auto 7.6 % (2.6-8.5); Neutrophils Absolute Auto 5.1 K/mm3 (1.3-6.7); Neutrophils Percent Auto 58.8 % (45.5-73.1); Platelet Count Result 324 k/mm3 (150-375); Red Blood Count 4.36 M/mm3 (4.2-5.4); Red Cell Distribution Width 13.8 % (11.5-14.5); White Blood Count 8.6 K/mm3 (4.5-10.0)
--- OUTSIDE RECORDS SUMMARY | 2024-12-20 11:49 | XMS_ITS | Continuity of Care Document ---
Author Organization [facility] Address [address] [place] [address] [place] [address] Phone Care Team Providers Care Job Placement Specialist Name Role Phone Fabian Trejo Unavailable Unavailable [...] Diagnoses Date Provider Providers Copied on Encounter [facility], [address], [place], [place], [id number], tel:[phone] [place] No Information Apr-1 3-201 5 Muehl Fabian. [address] [place] [address], [facility] [address], [place], [facility], . tel: [phone] Referring Provider: [place], [address]. tel:[phone] [facility], [place], [place], [id number], tel:[phone] [place] No Information Apr-0 1-201 5 Muehl Fabian. [address] [place] [address], [facility], [place], [place], [facility], . tel: [phone] Referring Provider: [place], [address]. tel:[phone] [facility], [place], [place], [id number], tel:[phone] [place] No Information Mar-3 0-201 5 Muehl Fabian. [address] [place] [address], [facility] [address], [place], [facility], . tel: [phone] Referring Provider: [place], [address]. tel:[phone] [facility] [address], [place], [place], [id number], tel:[phone] [place] No Information Mar-2 7-201 5 Muehl Fabian. [address] [place] [address], [facility] [address], [place], [facility], . tel: [phone] Referring Provider: [place], [address]. tel:[phone] [facility], [place], [place], [id number], tel:[phone] [place] No Information Mar-2 5-201 5 Muehl Fabian. [address] [place] [address], [address], [place], [place], [facility], . tel: [phone] Referring Provider: [place], [address]. tel:[phone] [place] [address] [facility] [facility] [address], [place], [id number], tel:[phone] [place] No Information Mar-2 3-201 5 Muehl Fabian. [address] [place] [address], [address], [place], [place], [facility], [place]. tel: [phone] Referring Provider: [place], [address]. tel:[phone], [id number], [place] tel:[phone] [place] No Information Mar-1 9-201 5 Muehl Fabian. [address] [place] [address], [address], [place], [facility], [place]. tel: [phone] Referring Provider: [place], [address]. tel:[phone] [place] [address], [id number], [place] tel:[phone] [place] No Information Mar-1 6-201 5 Muehl Fabian. [address] [place] [address], [address], [place], [facility], [place]. tel: [phone] Referring Provider: [place], [address]. tel:[phone] [address], [place], [place], [id number], [place] tel:[phone] [place] No Information Mar-1 3-201 5 Muehl Fabian. [address] [place] [address], [address], [place], [facility], . tel: [phone] Referring Provider: [place], [address]. tel:[phone], [id number], tel:[phone] [place] No Information Mar-1 1-201 5 Muehl Fabian. [address] [place] [address], [address], [place], [facility], . tel: [phone] Referring Provider: [place], [address]. tel:[phone], [id number], tel:[phone] [place] No Information Mar-0 6-201 5 Muehl Fabian. [address] [place] [address], [facility] [address], [place], [facility], . tel: [phone] Referring Provider: [place], [address]. tel:[phone], [id number], tel:[phone] [place] No Information Mar-0 4-201 5 Muehl Fabian. [address] [place] [address], [address], [place], [facility], . tel: [phone] Referring Provider: [place], [address]. tel:[phone], [id number], tel:[phone] [place] No Information Mar-0 3-201 5 Muehl Fabian. [address] [place] [address], [address], [place], [facility], . tel: [phone] Referring Provider: [place], [address]. tel:[phone], [id number], [place] tel:[phone] [place] No Information Feb-2 7-201 5 Muehl Fabian. [address] [place] [address], [address] [place] [address], [facility], . tel: [phone] Referring Provider: [place], [address]. tel:[phone], [id number], [place] tel:[phone] [place] No Information Feb-2 5-201 5 David Ladd. [address] [place] [address], [address] [place] [address], [facility], . tel: [phone] Referring Provider: [place], [address]. tel:[phone], [id number], [place] tel:[phone] [place] No Information b-2 3-201 5 Muehl Fabian. [address] [place] [address], [address], [facility], . tel: [phone] Referring Provider: [place], [address]. tel:[phone] [address], [id number], [place] tel:[phone] [place] Pain in joint involving lower leg Feb-2 0-201 5 Muehl Fabian. [address] [place] [address], [address], [place], [facility], . tel: [phone] Referring Provider: [place], [address]. tel:[phone] Family History Family Member Type Diagnosis Age At Onset No Information Payers Payer name Insurance type Covered libertarian ID Authoriza tigraeme(s) [facility] Emp [place] [id number] [facility] 2014 Social History Type Description Quantity Date [...]
--- OUTSIDE RECORDS SUMMARY | 2024-12-20 11:49 | XMS_ITS | Referral Summary ---
Author Organization [facility] Address [address] [place] [address] Care Team Providers Care Santa'S Helper Name Role Phone Hiral Montana MD Primary Care Pro vider Allergies Active Allergy Reactions Criticality Noted Date Comments Azithromycin Rash Medium 09/14/2013 Coconut Unknown 05/16/2021 Iodinated Contrast Media Hives Medium 05/16/2022 Iodine Unknown 09/26/2012 Medications iron aspgly,ps-C-B12 -FA-Ca-suc 150-60-25-1 ag-mz-olf-mg capsule Take 1 capsule by mouth daily [...] hyperglycemia, without long-term current use of insulin ([facility]) TAKE 1 TABLET BY MOUTH [...] 08/05/2012 Assessment & Plan (09/13/2023 3:10 PM MANAGER CHANNEL): Lab Results Component Value Date HGBA1C 7.8 [...] day Assessment & Plan (11/19/2022 8:01 AM MANAGER CHANNEL): Lab Results Component Value Date HGBA1C 10.3 [...] often do you attend chur ch or yazidism services? More than 4 times per year 04/22/2023 Do you belong to any clubs o r organizations such as uatsdin groups, unions, fraternal or athletic groups, or [...] on file Legal Sex Female 6:21 PM MANAGER CHANNEL Gender Identity Not on file Sexual Orientation Not on file Last Filed Vital Signs Vital Sign Reading Time Taken Comments Blood Pressure 130/88 09/13/2023 2:55 PM MANAGER CHANNEL Pulse 72 09/13/2023 2:55 PM MANAGER CHANNEL Temperature 36.3 C (97.3 F) 09/13/2023 2:55 PM MANAGER CHANNEL Respiratory Rate 18 09/13/2023 2:55 PM MANAGER CHANNEL Oxygen Saturation 99% 09/13/2023 2:55 PM MANAGER CHANNEL Inhaled Oxygen Concentration - - Weight 117.7 kg (259 lb 6.4 oz) 09/13/2023 2:55 PM MANAGER CHANNEL Height 175.3 cm (5' 9 ) 09/13/2023 2:55 PM MANAGER CHANNEL Body Mass Index 38.31 09/13/2023 2:55 PM MANAGER CHANNEL Plan of Treatment Not on file Procedures Procedure Name Priority Date/Time Associated Diagnosis Comments POCT HEMOGLOBIN A1C Routine 09/13/2023 3:00 PM MANAGER CHANNEL Type 2 diabetes mellitus with hyperglycemia, without long-term current use of insulin (HCC) RETINAVUE SCANNER - OU - BOTH EYES Routine 09/13/2023 Type 2 diabetes mellitus with hyperglycemia, without long-term current use of insulin (HCC) EGFR Routine 04/23/2023 5:30 AM CDT DIAGNOSTIC MAMMOGRAM BILATERAL W JORGE Schedule Routine, Read Routine (OP Routine) 09/13/2022 1:45 PM MANAGER CHANNEL Persistent nodularity of breast ALBUMIN CREATININE RATIO, [...] * POCT hemoglobin A1c (09/13/2023 3:00 PM MANAGER CHANNEL) Hemoglobin A1C, POC 7.8 % Blood 09/13/2023 3:00 PM MANAGER CHANNEL Hiral Montana MD POINT OF CARE [place] [...] BLOOD ORDERABLES Final Resul t [facility] [address] [facility] Department [place] [address] * Diagnostic Mammogram Bilateral W Jorge (09/13/2022 1:45 PM MANAGER CHANNEL) Anatomical Region Laterality Modality Breast Bilateral Mammography 09/13/2022 2:04 PM MANAGER CHANNEL Impressions 09/13/2022 2:06 PM MANAGER CHANNEL 1. No suspicious finding by mammogram or [...] by Juan Campos M.D. MD: Report ID: [id number] Reading Location: [facility] 09/13/2022 2:06 PM MANAGER CHANNEL EXAM DESCRIPTION: US BREAST LEFT LIMITED; DIAGNOSTIC [...] - 05/20/2022 8:08 AM CDT Performed at: [address] [place] [id number] Aerographer: Marito Curiel PhD, Phone: [phone] Hiral Montana MD LAB URINE ORDERAB LES Final Result Performing Organization Address City/[facility] [address]/ZIP Co de Phone Number [facility] - * (ABNORMAL) Lipid panel (05/19/2022 8:07 AM CDT) Pathologist [facility] Cholesterol 150 100 - 199 mg/dL [facility] - 01 Triglycerides 106 0 - 149 mg/dL [facility] - 01 HDL Cholesterol 36(L) >39 mg/dL [facility] - 01 VLDL 20 5 - 40 mg/dL [facility] - 01 LDL, calculated 94 0 - 99 mg/dL [facility] - 01 Blood 05/19/2022 8:07 AM CDT 05/19/2022 Narrative [facility] - 05/20/2022 8:08 AM CDT Performed at: [address] [place] [id number] Aerographer: Marito Curiel PhD, Phone: [phone] Hiral Montana MD LAB BLOOD ORDERAB LES Final Result Performing Organization Address City/[facility] [address]/ZIP Co de Phone Number [facility] - 01 * (ABNORMAL) Pap and High Risk HPV, reflex to Genotyping (05/16/2022 9:58 AM CDT) Thin prep (Pap test) 05/16/2022 9:58 AM CDT 05/17/2022 9:58 AM CDT Narrative PATHOLOGY [facility] - 05/23/2022 4:08 PM CDT [facility] Department of Pathology [address] [place] [id number] Final Report with Addendum Note to [...] the details. Patient Name: ALISIA COREY Address: [address] [place] [address] Gender: F : 1980 (Age: 42) Service: Laboratory Location: [facility] #: [id number] Patient Type: [facility] SPECIMEN Taken: 05/16/2022 Received: 05/17/2022 Accessioned:: 05/18/2022 Reported: 05/23/2022 Physician(s): Hiral Montana M.D. [facility] Diagnosis: Source of Specimen: SCREENING THIN PREP [...] determined by the Surgical Pathology Department at [facility] as part of an ongoing quality rn program and in compliance with federally mandated [...] characteristics determined by the Surgical Pathology Department [facility]. It has not been cleared or approved by the U. S. Food and Drug Administration. Hiral Montana MD LAB CYTOLOGY TRAE NARAYAN Final Result PATHOLOGY [facility] from Last 3 Months or Most Recently Relevant to Health Maintenance [place] [address] [place] [address] CHOICE PLUS Advance Directives For more information, please contact: [phone] * Full Code (Latest Code Status on File) Date Activated Date Inactivated Comments 04/21/2023 1:35 AM 04/23/2023 9:04 PM * Full Code Date Activated Date Inactivated Comments 04/20/2023 8:26 PM 04/21/2023 1:35 AM Care Teams Santa'S Helper Relationship Specialty Start Date End Date Hiral Montana MD PCP - General Family Medicine 05/16/21
--- OUTSIDE RECORDS SUMMARY | 2024-12-20 11:49 | XMS_ITS | Clinical Summary ---
Author Organization [facility] Address [address] [place] [address] Care Team Providers Care Family Law Mediator Name Role Phone Hiral Montana MD Primary Care Pro vider Allergies Active Allergy Reactions Criticality Noted Date Comments Azithromycin Rash Medium 09/14/2013 Coconut Unknown 05/16/2021 Iodinated Contrast Media Hives Medium 05/16/2022 Iodine Unknown 09/26/2012 Medications iron aspgly,ps-C-B12 -FA-Ca-suc 150-60-25-1 bu-yu-heo-mg capsule Take 1 capsule by mouth daily [...] hyperglycemia, without long-term current use of insulin ([facility]) TAKE 1 TABLET BY MOUTH EVERY DAY [...] 08/05/2012 Assessment & Plan (09/13/2023 3:10 PM WEB CONSULTANT): Lab Results Component Value Date HGBA1C 7.8 [...] day Assessment & Plan (11/19/2022 8:01 AM WEB CONSULTANT): Lab Results Component Value Date HGBA1C 10.3 [...] often do you attend chur ch or pentecostal services? More than 4 times per year 04/22/2023 Do you belong to any clubs o r organizations such as islam groups, unions, fraternal or athletic groups, or [...] on file Legal Sex Female 6:21 PM WEB CONSULTANT Gender Identity Not on file Sexual Orientation [...] Comments Blood Pressure 130/88 09/13/2023 2:55 PM WEB CONSULTANT Pulse 72 09/13/2023 2:55 PM WEB CONSULTANT Temperature 36.3 C (97.3 F) 09/13/2023 2:55 PM WEB CONSULTANT Respiratory Rate 18 09/13/2023 2:55 PM WEB CONSULTANT Oxygen Saturation 99% 09/13/2023 2:55 PM WEB CONSULTANT Inhaled Oxygen Concentration - - Weight 117.7 kg (259 lb 6.4 oz) 09/13/2023 2:55 PM WEB CONSULTANT Height 175.3 cm (5' 9 ) 09/13/2023 2:55 PM WEB CONSULTANT Body Mass Index 38.31 09/13/2023 2:55 PM WEB CONSULTANT Plan of Treatment Health Maintenance Due Date [...] POCT HEMOGLOBIN A1C Routine 09/13/2023 3:00 PM WEB CONSULTANT Type 2 diabetes mellitus with hyperglycemia, without long-term current use of insulin (HCC) RETINAVUE SCANNER - OU - BOTH EYES Routine 09/13/2023 Type 2 diabetes mellitus with hyperglycemia, without long-term current use of insulin (HCC) EGFR Routine 04/23/2023 5:30 AM CDT DIAGNOSTIC MAMMOGRAM BILATERAL W JORGE Schedule Routine, Read Routine (OP Routine) 09/13/2022 1:45 PM WEB CONSULTANT Persistent nodularity of breast ALBUMIN CREATININE RATIO, [...] * POCT hemoglobin A1c (09/13/2023 3:00 PM WEB CONSULTANT) Hemoglobin A1C, POC 7.8 % Blood 09/13/2023 3:00 PM WEB CONSULTANT Hiral Montana MD POINT OF CARE WOLFGANG [...] ORDERABLES Final Resul t [facility] [address] [facility] Department [place] [address] * Diagnostic Mammogram Bilateral W Jorge (09/13/2022 1:45 PM WEB CONSULTANT) Anatomical Region Laterality Modality Breast Bilateral Mammography 09/13/2022 2:04 PM WEB CONSULTANT Impressions 09/13/2022 2:06 PM WEB CONSULTANT 1. No suspicious finding by mammogram or [...] by Juan Campos M.D. MD: Report ID: [id number] Reading Location: [facility] 09/13/2022 2:06 PM WEB CONSULTANT EXAM DESCRIPTION: US BREAST LEFT LIMITED; DIAGNOSTIC [...] - 05/20/2022 8:08 AM CDT Performed at: [address] [place] [id number] Audio Visual Arts Director: Marito Curiel PhD, Phone: [phone] Hiral Montana MD LAB URINE ORDERAB LES Final Result Performing Organization Address [facility] de Phone Number [facility] - * [...] - 05/20/2022 8:08 AM CDT Performed at: [address] [id number] Audio Visual Arts Director: Marito Curiel PhD, Phone: [phone] Hiral Montana MD LAB BLOOD ORDERAB LES Final Result Performing Organization Address [facility] Co de Phone Number [facility] - * (ABNORMAL) Pap and High Risk HPV, reflex to Genotyping (05/16/2022 9:58 AM CDT) Thin prep (Pap test) 05/16/2022 9:58 AM CDT 05/17/2022 9:58 AM CDT Narrative PATHOLOGY [facility] - 05/23/2022 4:08 PM CDT [facility] Department of Pathology [address] [place] [address] Final Report with Addendum Note to Patients: [...] the details. Patient Name: ALISIA COREY Address: [address] [place] [address] Gender: F : 1980 (Age: 42) Service: Laboratory Location: [facility] #: [id number] Patient Type: [facility] SPECIMEN Taken: 05/16/2022 Received: 05/17/2022 Accessioned:: 05/18/2022 Reported: 05/23/2022 Physician(s): Hiral Montana M.D. [facility] Diagnosis: Source of Specimen: SCREENING THIN PREP [...] determined by the Surgical Pathology Department at [facility] as part of an ongoing clinical quality assurance specialist program and in compliance with federally mandated [...] determined by the Surgical Pathology Department [facility]. It has not been cleared or approved by the U. S. Food and Drug Administration. Hiral Montana MD LAB CYTOLOGY TRAE NARAYAN Final Result PATHOLOGY [facility] from Last 3 Months or Most Recently Relevant to Health Maintenance Insurance [facility] CHOICE PLUS [facility] CHOICE PLUS [facility] CHOICE PLUS Advance Directives For more information, please contact: [phone] * Full Code (Latest Code Status on File) Date Activated Date Inactivated Comments 04/21/2023 1:35 AM 04/23/2023 9:04 PM * Full Code Date Activated Date Inactivated Comments 04/20/2023 8:26 PM 04/21/2023 1:35 AM Care Teams Family Law Mediator Relationship Specialty Start Date End Date Hiral Montana MD PCP - General Family Medicine 05/16/21
--- OUTSIDE RECORDS SUMMARY | 2024-12-20 11:49 | XMS_ITS | Clinical Summary ---
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
--- OUTSIDE RECORDS SUMMARY | 2024-12-20 11:49 | XMS_ITS | Clinical Summary ---
Author Organization [facility] Address [address] [place] [address] Care Team Providers Care General Manager Food Name Role Phone Dinorah Aniya Akash CARR Primary Care Provider Allergies Active Allergy Reactions Criticality Noted Date Comments Azithromycin Unknown 09/14/2013 Coconut (Cocos Nucifera) Unknown 08/05/2012 Iodine Unknown 09/26/2012 Medications valACYclovir 1 g tablet Take 1 tablet by mouth 3 (three) times daily. 05/30/2015 Active Accu-Chek Multiclix Lancets [facility] 09/25/2013 Active liraglutide (VICTOZA) 18 MG/3ML injection Inject into the skin daily. 04/03/2018 Active Insulin Syringe-Needle U-100 (BD INSULIN SYRINGE U/F) 31G X 5/16 0.3 ML [facility] 04/03/2018 Active Insulin Pen Needle (B-D ULTRAFINE III SHORT PEN) 31G X 8 MM [facility] 06/14/2015 Active insulin detemir (LEVEMIR FLEXTOUCH) 100 [...] Fatigue 08/05/2012 Diabetes mellitus ([facility]) 08/05/2012 Immunizations Name Administration Dates Next [...] with a HCV Nucleic Acid Amplification test ([id number]). 04/26/2018 9:11 AM CDT 04/26/2018 9:11 AM CDT Narrative [facility] CONVERSION - 04/30/2018 7:10 PM CDT Result Communication: No patient communication needed at this time us Aniya [facility]OR[facility] Final Resul t [facility] CONVERSION from Last 3 Months or Most Recently Relevant to Health Maintenance Care Teams General Manager Food Relationship Specialty Start Date End Date Aniya Copeland APNP [address] [place] [id number] PCP - General NURSE PRACTITIONER 04/26/20
[2024-12-20 11:56] LABS: Anion Gap 11 mmol/L (4-12); Blood Urea Nitrogen 10 mg/dL (7-17); Calcium 8.9 mg/dL (8.4-10.2); Carbon Dioxide 24 mmol/L (22-30); Chloride 103 mmol/L (98-107); Estimated CRCL calculation 143 ml/min; Estimated Glomerular Filt Rate > 60; Glucose 245 mg/dL (65-110); Potassium 4.1 mmol/L (3.4-5.0); Sodium 138 mmol/L (137-145)
[2024-12-20] MEDS: KETOROLAC 30 MG/ML VIAL (*BKC) IV PUSH (12:10)
[2024-12-20] MEDS: PROCHLORPERAZINE EDISYLATE 10 MG/2 ML VIAL 5 MG IV PUSH (12:11)
--- NOTE | 2024-12-20 14:07 | ED_ITS ---
[facility] - General Adult General Chief complaint: Headache Stated complaint: headache, left side of head is tingly Time Seen by Provider: 12/20/24 11:15 Source: patient and family Mode of arrival: ambulatory Limitations: no limitations History of Present Illness HPI narrative: 44-year-old with a history of diabetes here with the complaints of left-sided headache associated with blurred vision which started 2 days ago. She denies any motor weakness. No previous history of headaches. Denies any fever chills Onset (ago): day(s) (2) Location: head and face Radiation: non-radiation Severity: moderate Associated symptoms: headaches Treatments prior to arrival: none Related Data Allergies Allergy/AdvReac Type Severity Reaction Status Date / Time Contrast Media Allergy Uncoded 04/25/13 16:27 ZPACK Allergy Uncoded 04/25/13 16:27 Review of Systems 2 Review of Systems: All systems reviewed & are unremarkable except as noted in HPI and below Constitutional: Constitutional: Reports no additional constitutional complaints Eyes: Eyes: Reports as per HPI ENT: Reports system reviewed and no additional complaints, except as documented Cardiovascular: Cardiovascular: Reports no additional cardiovascular complaints Respiratory: Respiratory: Reports no additional respiratory complaints Gastrointestinal: Gastrointestinal: Reports no additional gastrointestinal complaints Musculoskeletal: Musculoskeletal: Reports no additional musculoskeletal complaints Neurologic: Reports as per HPI Exam 2 Narrative: GENERAL: Well-appearing, well-nourished, and in no acute distress. HEAD: Normocephalic, atraumatic. EYES: PERRLA and EOMI. ENT: Nares clear, no rhinorrhea or epistaxis. Mucous membranes moist. NECK: Supple. CHEST: Clear to auscultation. No respiratory distress. HEART: Regular rate and rhythm. No murmur heard. Normal peripheral pulses. ABDOMEN: Soft, nontender, nondistended, normal active bowel sounds. EXTREMITIES: Normal range of motion. No edema. SKIN: Warm, dry, no rash. NEURO: No focal deficits. Alert and oriented x3. PSYCH: Normal mood and affect. Course Course Emergency Course: Did notify patient and the family about her lab work, CT findings. I headache is much improved. Advised to continue all home medication, rest, follow-up with her primary doctor Vital Signs Vital signs: Vital Signs Temperature 36.4 C L 12/20/24 11:02 Pulse Rate 83 12/20/24 11:02 Respiratory Rate 16 12/20/24 11:02 Blood Pressure 156/79 H 12/20/24 11:02 Pulse Oximetry 99 12/20/24 11:02 Oxygen Delivery Room Air 12/20/24 11:02 Temperature 36.4 C L 12/20/24 11:02 Pulse Rate 83 12/20/24 11:02 Respiratory Rate 16 12/20/24 11:02 Blood Pressure 156/79 H 12/20/24 11:02 Pulse Oximetry 99 12/20/24 11:02 Oxygen Delivery Room Air 12/20/24 11:02 Medical Decision Making Vital Signs Vital Signs: Vital Signs Temperature 36.4 C L 12/20/24 11:02 Pulse Rate 83 12/20/24 11:02 Respiratory Rate 16 12/20/24 11:02 Blood Pressure 156/79 H 12/20/24 11:02 Pulse Oximetry 99 12/20/24 11:02 Oxygen Delivery Room Air 12/20/24 11:02 Temperature 36.4 C L 12/20/24 11:02 Pulse Rate 83 12/20/24 11:02 Respiratory Rate 16 12/20/24 11:02 Blood Pressure 156/79 H 12/20/24 11:02 Pulse Oximetry 99 12/20/24 11:02 Oxygen Delivery Room Air 12/20/24 11:02 Lab Data 12/20/24 11:41 12/20/24 11:41 Labs: Lab Results 12/20/24 12/20/24 Range/Units 11:12 11:41 WBC 8.6 (4.5-10.0) K/mm3 RBC 4.36 (4.2-5.4) M/mm3 Hgb 12.2 (12.0-15.0) g/dL Hct 37.6 (37.0-47.0) % MCV 86.2 (80-100) fl MCH 28.0 (26-34) pg MCHC 32.4 (32-36) g/dl RDW 13.8 (11.5-14.5) % Plt Count 324 (150-375) k/mm3 MPV 10.1 (7.4-10.4) fl Immature Gran % (Auto) 0.3 (0-0.5) % Neut % (Auto) 58.8 (45.5-73.1) % Lymph % (Auto) 27.0 (18.3-44.2) % Rains % (Auto) 7.6 (2.6-8.5) % Eos % (Auto) 5.6 H (0-4.4) % Baso % (Auto) 0.7 (0.2-1.2) % Lymph # (Auto) 2.32 (0.9-3.2) K/mm3 Rains # (Auto) 0.7 H (0.1-0.6) K/mm3 Eos # (Auto) 0.5 H (0-0.3) K/mm3 Baso # (Auto) 0.1 (0.0-0.1) K/mm3 Abs Immat Gran (auto) 0.03 (0.00-0.031) K/mm3 Absolute Neuts (auto) 5.1 (1.3-6.7) K/mm3 Absolute Nucleated RBC 0.000 (0.0-0.012) K/mm3 Nucleated RBC % 0.0 (0.0-0.2) % Sodium 138 (137-145) mmol/L Potassium 4.1 (3.4-5.0) mmol/L Chloride 103 (98-107) mmol/L Carbon Dioxide 24 (22-30) mmol/L Anion Gap 11 (4-12) mmol/L BUN 10 (7-17) mg/dL Creatinine 0.60 L (0.7-1.0) mg/dL Estim Creat Clear Calc 143 ml/min Estimated GFR > 60 (59 - ) Glucose 245 H (65-110) mg/dL POC Capillary Glucose 251 H (65-105) mg/dl Calcium 8.9 (8.4-10.2) mg/dL Imaging Data Radiologist's impression: ITS Impressions Head CT 12/20/24 12:40 IMPRESSION: No acute intracranial findings. Discharge Plan Discharge Clinical Impression: Migraine Qualifiers: Migraine type: unspecified Status migrainosus presence: without status migrainosus Intractability: intractable Qualified Code(s): G43.919 - Migraine, unspecified, intractable, without status migrainosus Patient Disposition: Home, Self-Care Condition: Stable Instructions: Migraine Headache (ED) Additional Instructions: Continue home medication can take Tylenol or Excedrin for migraine, follow-up with your primary doctor Patient Language: Danish Follow-up/Referrals: PHYSICIAN NOT ON STAFF,NONSTAFF [Primary Care Provider] - Time of Disposition: 14:12
[2024-12-20 14:28] VITALS: BP 124/70; PULSE 74; RESP 18; O2SAT 97
== END 2024-12-20 14:29 | disposition home or self-care (01) ==
PROVIDERS: Emergency Provider Family Medicine
DX: G43.919 Migraine, unspecified, intractable, without status migrainosus (principal); E11.9 Type 2 diabetes mellitus without complications
CPT/HCPCS: 36415; 70450; 80048; 82948; 85025; 96374; 96375; 99284; J0780; J1885